=== PATIENT | male | born 1990 | race Caucasian/White ===

== ENCOUNTER 2016-05-12 08:48 | Emergency (ER) | payer BC ==
[2016-05-12 09:01] VITALS: BP 126/68
--- NOTE | 2016-05-12 11:54 | UC ---
Mayelin Melendez Michael, scribed for Snow Daniel DO on 05/12/16 at 0930 . Throat Pain/Nasal Augie HPI - HPI Summary HPI Summary: 26 y/o pain c/o a sore throat that started 3 dayS ago. The pt reports that the pain has worsened since yesterday, and it is painful to swallow. He states when clearing his sinuses there is a "string" of blood in his mucous. Since yesterday , the pt has has dark brown bloody mucous when he clears his sinuses in the morning. The pt also c/o ear "popping" ear pressure without pain, sinus discomfort, and a fever of 100.2. He denies SOB, CP, cough, MENDOZA, and n/v. The FHx is significant for cardiac disease and cancer. - History of Current Complaint Chief Complaint: UCRespiratory Stated Complaint: FEVER EAR PAIN SORE THROAT Time Seen by Provider: 05/12/16 09:03 Hx Obtained From: Patient, Medical Records Onset/Duration: Sudden Onset, Lasting Days, Still Present Severity: Moderate Pain Intensity: 6 Pain Scale Used: 0-10 Numeric Cough: None Associated Signs & Symptoms: Positive: Negative - SOB. CP. n/v. MENDOZA., Dysphagia, Sinus Discomfort, Fever, Other - sore throat. ear pressure.. Negative: Drooling , Wheezing, Hoarseness, Nasal Discharge, Vomiting Related History: Smoking - Allergies/Home Medications Allergies/Adverse Reactions: Allergies Allergy/AdvReac Type Severity Reaction Status Date / Time No Known Allergies Allergy Verified 03/17/15 12:25 PMH/Surg Hx/FS Hx/Imm Hx Previously Healthy: Yes Endocrine History Of: Denies: Diabetes, Thyroid Disease Cardiovascular History Of: Denies: Cardiac Disorders, Hypertension Respiratory History Of: Denies: COPD, Asthma GI/ History Of: Denies: Ulcer - Surgical History Surgical History: Yes Surgery Procedure, Year, and Place: appendectomy - 2000 - Family History Known Family History: Positive: Cardiac Disease, Other - cancer Negative: Hypertension, Blood Disorder - Social History Occupation: Employed Full-time Lives: With Family Alcohol Use: Weekly Substance Use Type: Marijuana Smoking Status (MU): Light Every Day Tobacco Smoker Type: Cigarettes Amount Used/How Often: 1/2 -1PPD Length of Time of Smoking/Using Tobacco: 11 YEARS Have You Smoked in the Last Year: Yes Cessation Counseling: Patient Advised to Stop - Immunization History Most Recent Influenza Vaccination: GOT FLU SHOT 3 WEEKS AGO. Most Recent Tetanus Shot: up to date Review of Systems Constitutional: Fever Skin: Negative Eyes: Negative ENT: Sore Throat, Other - sinus discomfort, ear pressure. Respiratory: Negative Cardiovascular: Negative Gastrointestinal: Negative Genitourinary: Negative Motor: Negative Neurovascular: Negative Musculoskeletal: Negative Neurological: Negative Psychological: Negative All Other Systems Reviewed And Are Negative: Yes Physical Exam Triage Information Reviewed: Yes Appearance: Well-Appearing, No Pain Distress, Well-Nourished Vital Signs: Initial Vital Signs Temp 99.1 F 05/12/16 08:54 Pulse 102 05/12/16 08:54 Resp 16 05/12/16 08:54 BP 126/68 05/12/16 08:54 Pulse Ox 97 05/12/16 08:54 Vital Signs Reviewed: Yes Eyes: Positive: Conjunctiva Clear. Negative: Discharge ENT: Positive: Hearing grossly normal, Pharyngeal erythema, TM bulging, TM red, Tonsillar swelling, Other: - right sinus tenderness over left maxillary sinus. Negative: Nasal drainage, Tonsillar exudate, Trismus, Muffled/hoarse voice Dental Exam: Normal Neck: Positive: Supple, Nontender, No Lymphadenopathy Respiratory: Positive: Lungs clear, Normal breath sounds, No respiratory distress, No accessory muscle use Cardiovascular: Positive: RRR, No Murmur Musculoskeletal Exam: Normal Neurological: Positive: Alert, Muscle Tone Normal Psychological Exam: Normal Psychological: Positive: Age Appropriate Behavior Skin: Positive: Other - warm. dry. nml color. Throat Pain/Nasal Course/Dx - Differential Dx/Diagnosis Differential Diagnosis/HQI/PQRI: Influenza, Otitis Media, Pharyngitis, Sinusitis , Tonsillitis, URI Provider Diagnoses: om, sinusitis Discharge - Discharge Plan Condition: Stable Disposition: HOME Prescriptions: Amoxicillin/Clavulanate TAB* [Augmentin TAB 875*] 875 mg PO BID #20 tab Patient Education Materials: Sinusitis (ED), Otitis Media (ED) Forms: *Work Release Referrals: Rashi Boss MD [Primary Care Provider] - If Needed Additional Instructions: ANTIBIOTICS ARE NOT CURRENTLY INDICATED FOR YOUR CONDITION. HOWEVER IF YOUR SYMPTOMS WORSEN OR PERSIST FOR MORE THAN 2-4 DAYS, YOU CAN START THE FOLLOWING ANTIBIOTI AUGMENTIN: Augmentin is a mixture of amoxicillin and clavulanate. Amoxicillin is a member of the penicillin family. It covers the germs likely to cause ear, bronchial, and urinary infections better than plain penicillin. The addition of clavulanate allows it to cover staph infections of the skin, as well as resistant cases of ear and sinus infections. Your physician has chosen Augmentin for you because of the special nature of your situation. Augmentin is best taken with meals. Nausea after taking the medication is rare, but can occur. Diarrhea can occur, particularly in small children. Vaginal yeast infections, and oral thrush in infants are also common. Contact your physician if these problems occur. Allergy to penicillins is common. If you have had an allergic reaction to any drug of the penicillin family, you should never take any other penicillin. Notify your doctor at once if you develop hives, shortness of breath, swelling, or faintness. ANY TIME YOU TAKE AN ANTIBIOTIC, IT IS IMPORTANT TO REPLENISH THE BODY'S BALANCE OF "GOOD" BACTERIA BY EATING HIGH QUALITY CULTURED FOOD SUCH YOGURT, SAURKRAUT OR JASBIR CHI AND/OR TAKING A PROBIOTIC SUPPLEMENT. TRY USING THE NETTI POT IN THE MORNINGS DISCUSSED. YOU MUST ALWAYS USE CLEAN WATER. REMEMBER, POSTURE IS AN IMPORTANT FACTOR IN SINUS DRAINAGE. MOVE YOUR NECK, BREATHE. The documentation as recorded by the Mayelin padilla Michael accurately reflects the service I personally performed and the decisions made by , Snow Daniel DO.
== END 2016-05-12 09:55 | disposition home or self-care (01) ==
LOC: UCEAST 08:48
DX: H66.90 Otitis media, unspecified, unspecified ear (principal); J01.90 Acute sinusitis, unspecified; B96.89 Other specified bacterial agents as the cause of diseases classified elsewhere
CPT/HCPCS: 87502; 87651; 99212; G0463

== ENCOUNTER 2016-11-07 15:11 | Emergency (ER) | payer BC ==
[2016-11-07 15:26] VITALS: BP 116/71
[2016-11-07] MEDS ORDERED: cefTRIAXone VIAL(*) 250 MG VIAL IM ONE (16:26)
[2016-11-07] MEDS ORDERED: Azithromycin TAB* 250 MG PO ONE (16:27)
[2016-11-07] MEDS ORDERED: Lidocaine 1% MPF* 2 ML VIAL INJ ONE ×2 (16:53→16:54)
--- NOTE | 2016-11-07 18:09 | UC ---
Aileen Melendez Edward, scribed for Mc Atkins MD on 11/07/16 at 1622 . Complaint Male HPI - HPI Summary HPI Summary: 26 y/o male presents to [facility] c/o bumps on his penis and dysuria. The bumps started the day before yesterday - patient squeezed one and c/o of severe pain. Patient also stated that there was clear discharge out of several of the lesions. Denies fevers, chills. Associated sx: chronic ache in testicles, mild abd pain and bilateral flank pain. Pt states loss of appetite recently due to anxiety. SHx appendectomy when he was 9. Patient stated he had intercourse recently with his ex-girlfriend. - History of Current Complaint Chief Complaint: UCGU Stated Complaint: LOWER ABD PAIN,BURING URINATION Time Seen by Provider: 11/07/16 16:03 Hx Obtained From: Patient Onset/Duration: Lasting Days - Bumps on penis appeared the day before yesterday Timing: Constant Severity Initially: Mild Pain Intensity: 3 Pain Scale Used: 0-10 Numeric Location: Penis Associated Signs And Symptoms: Positive: Back Pain, Dysuria, Appetite - Change in appetite due to anxiety. Negative: Fever - Allergies/Home Medications Allergies/Adverse Reactions: Allergies Allergy/AdvReac Type Severity Reaction Status Date / Time No Known Allergies Allergy Verified 11/07/16 15:27 PMH/Surg Hx/FS Hx/Imm Hx Previously Healthy: Yes - Surgical History Surgical History: Yes Surgery Procedure, Year, and Place: appendectomy - 1999 - Family History Known Family History: Positive: Cardiac Disease, Other - cancer Negative: Hypertension, Blood Disorder - Social History Occupation: Employed Full-time Lives: With Family - With mom Alcohol Use: Weekly Substance Use Type: Marijuana Smoking Status (MU): Light Every Day Tobacco Smoker Type: Cigarettes Amount Used/How Often: 1/2 -1PPD Length of Time of Smoking/Using Tobacco: 11 YEARS Have You Smoked in the Last Year: Yes - Immunization History Most Recent Influenza Vaccination: GOT FLU SHOT 3 WEEKS AGO. Most Recent Tetanus Shot: up to date Review of Systems Constitutional: Negative - Negative fever, chills Skin: Other - Bumps on penis - patient squeezed on and it was severely painful. Patient stated there was clear fluid discharged from several of the lesions Eyes: Negative ENT: Negative Respiratory: Negative Cardiovascular: Negative Gastrointestinal: Abdominal Pain - Mild abd pain Genitourinary: Dysuria, Other - Chronic ache in testicles Motor: Negative Neurovascular: Negative Musculoskeletal: Edema - Mild back pain Neurological: Negative Psychological: Anxious - with loss of appetite All Other Systems Reviewed And Are Negative: Yes Physical Exam Triage Information Reviewed: Yes Appearance: Well-Appearing, No Pain Distress Vital Signs: Initial Vital Signs Temp 98.1 F 11/07/16 15:23 Pulse 84 11/07/16 15:23 Resp 18 11/07/16 15:23 BP 116/71 11/07/16 15:23 Pulse Ox 99 11/07/16 15:23 Vital Signs Reviewed: Yes Eye Exam: Normal ENT: Positive: Normal ENT inspection Neck: Positive: Supple, Nontender Respiratory: Positive: Lungs clear, Normal breath sounds Cardiovascular Exam: Normal Abdomen Description: Positive: Nontender, Soft Bowel Sounds: Positive: Present Musculoskeletal: Positive: Strength Intact, ROM Intact Neurological: Positive: Alert Psychological Exam: Normal Skin: Positive: significant lesion(s) - On the suprapubic region and the shaft of the penis there are multiple lesions, ranging from 4-12 mm in diameter, raised, with central dimples. Complaint Male Course/Dx - Course Course Of Treatment: Medications reviewed on patient visit. HSV culture swabs were done. PAtient expressed clear fluid out of several of the lesions at this time. GC/CHLAMYDIA PENDING. WILL TREAT FOR GC/CHLAMYDIA AND HSV. MOLLUSCUM IS ALSO A POSSIBLE DX. - Differential Dx/Diagnosis Provider Diagnoses: GENITAL RASH Discharge - Discharge Plan Condition: Stable Disposition: HOME Prescriptions: ValACYclovir (*) [Valtrex 1 GM(*)] 1 gm PO BID #20 tab Patient Education Materials: Genital Herpes Simplex (ED), Dysuria (ED) Referrals: Rashi Boss MD [Primary Care Provider] - Additional Instructions: FOLLOW UP WITH YOUR DOCTOR FOR YOUR GENITAL RASH. YOU HAVE BEEN TREATED WITH THE ANTIBIOTICS ROCEPHIN AND AZITHROMYCIN FOR POSSIBLE GONORRHEA AND/OR CHLAMYDIA. YOUR URINE TEST RESULTS FOR GONORRHEA AND CHLAMYDIA ARE PENDING. TAKE THE VALTREX DIRECTED. YOUR SWAB CULTURE AND HERPES BLOOD WORK RESULTS ARE PENDING. RETURN TO THE EMERGENCY DEPARTMENT FOR ANY WORSENING OF YOUR CONDITION OR QUESTIONS OR CONCERNS. The documentation as recorded by the Aileen padilla Edward accurately reflects the service I personally performed and the decisions made by me, Mc Atkins MD.
[2016-11-09 23:28] LABS: HS/VZ Source PENIS LESION; Varicella Zoster Result Negative (Negative); Varicella Zoster Source PENIS LESION
--- NOTE | 2016-11-10 07:42 | UC ---
Progress - Progress Note Progress Note: Reviewed chart and labs. Positive for HSV2, is being treated with Valtrex. Please advise of positive result, advise re risk of infecting partner.
== END 2016-11-07 17:55 | disposition home or self-care (01) ==
LOC: UCEAST 15:11
DX: B00.9 Herpesviral infection, unspecified (principal); F12.90 Cannabis use, unspecified, uncomplicated; F17.210 Nicotine dependence, cigarettes, uncomplicated
CPT/HCPCS: 81003; 86694; 86695; 86696; 87491; 87529; 87591; 87798; 96372; 99212; A9270-GY; G0463; J0696

== ENCOUNTER 2017-11-10 13:22 | Emergency (ER) | payer BC ==
[2017-11-10 13:41] VITALS: BP 130/68
--- NOTE | 2017-11-10 14:02 | UC ---
Throat Pain/Nasal Augie HPI - HPI Summary HPI Summary: 27 yo male presents with sinus pain/pressure/congestion and productive cough for the last week. He has not been taking anything OTC. He smokes daily. Denies fever, chills, SOB, chest pain. - History of Current Complaint Chief Complaint: UCRespiratory Stated Complaint: CONGESTED Time Seen by Provider: 11/10/17 14:01 Hx Obtained From: Patient Onset/Duration: Gradual Onset Pain Intensity: 0 Cough: Productive - Allergies/Home Medications Allergies/Adverse Reactions: Allergies Allergy/AdvReac Type Severity Reaction Status Date / Time No Known Allergies Allergy Verified 11/10/17 13:42 PMH/Surg Hx/FS Hx/Imm Hx - Additional Past Medical History Additional PMH: HSV2 Previously Healthy: Yes - Surgical History Surgical History: Yes Surgery Procedure, Year, and Place: appendectomy - 1999 - Family History Known Family History: Positive: Cardiac Disease, Other - cancer Negative: Hypertension, Blood Disorder - Social History Occupation: Employed Full-time Lives: With Family Alcohol Use: None Substance Use Type: Marijuana Smoking Status (MU): Light Every Day Tobacco Smoker Type: Cigarettes Amount Used/How Often: 1/2 -1PPD Length of Time of Smoking/Using Tobacco: 11 YEARS Have You Smoked in the Last Year: Yes - Immunization History Most Recent Influenza Vaccination: GOT FLU SHOT 3 WEEKS AGO. Most Recent Tetanus Shot: up to date Review of Systems Constitutional: Negative Skin: Negative Eyes: Negative ENT: Nasal Discharge, Sinus Congestion, Sinus Pain/Tenderness Respiratory: Cough Cardiovascular: Negative Gastrointestinal: Negative Neurovascular: Negative Neurological: Negative Psychological: Negative All Other Systems Reviewed And Are Negative: Yes Physical Exam - Summary Physical Exam Summary: GENERAL: NAD. WDWN. No pain distress. SKIN: No rashes, sores, lesions, or open wounds. HEENT: Head: AT/NC Eyes: EOM intact. Conjunctiva clear without inflammation or discharge. Ears: Hearing grossly normal. TMs intact, no bulging, erythema, or edema. Nose: Nasal mucosa mildly swollen and erythematous with yellow/ green discharge. TTP maxillary and frontal sinus. Throat: Posterior oropharynx without exudates, erythema, or tonsillar enlargement. Uvula midline. NECK: Supple. Nontender. No lymphadenopathy. CHEST: CTAB. No r/r/w. No accessory muscle use. Breathing comfortably and in no distress. CV: RRR. Without m/r/g. Pulses intact. Brisk cap refill. NEURO: Alert. CN II-XII grossly intact. PSYCH: Age appropriate behavior. Triage Information Reviewed: Yes Vital Signs: Initial Vital Signs Temp 97.8 F 11/10/17 13:39 Pulse 71 11/10/17 13:39 Resp 18 11/10/17 13:39 BP 130/68 11/10/17 13:39 Pulse Ox 99 11/10/17 13:39 Throat Pain/Nasal Course/Dx - Course Course Of Treatment: Sinusitis. Bronchitis - Differential Dx/Diagnosis Provider Diagnoses: Sinusitis. Bronchitis Discharge - Sign-Out/Discharge Documenting (check all that apply): Discharge/Admit/Transfer - Discharge Plan Condition: Stable Disposition: HOME Prescriptions: Azithromycin TAB* [Zithromax TAB (Z-ALVIN) 250 mg #6 tabs] 2 tab PO .TODAY, THEN 1 DAILY #1 alvin ValACYclovir (*) [Valtrex 500 mg (*)] 500 mg PO BID PRN #60 tab PRN Reason: Rash Patient Education Materials: Acute Bronchitis (ED) Forms: *Work Release Referrals: Rashi Boss MD [Primary Care Provider] - Additional Instructions: If you develop a fever, shortness of breath, chest pain, new or worsening symptoms - please call your PCP or go to the ED. - Billing Disposition and Condition Condition: STABLE Disposition: Home
== END 2017-11-10 14:20 | disposition home or self-care (01) ==
LOC: UCEAST 13:22
DX: J40 Bronchitis, not specified as acute or chronic (principal); J32.9 Chronic sinusitis, unspecified; F17.210 Nicotine dependence, cigarettes, uncomplicated
CPT/HCPCS: 99212; G0463

== ENCOUNTER 2018-10-17 08:37 | Emergency (ER) | payer SELFPAY ==
[2018-10-17 08:51] VITALS: BP 130/77
--- NOTE | 2018-10-17 08:52 | UC ---
Laceration HPI - HPI Summary HPI Summary: 28 yo male presents with laceration to left hand. He tells me that this morning at work he was cutting vegetables and the knife slipped and he sustained a laceration to his left thenar region. He bandaged the area and came to . States his last tetanus was within the last 5 years - History Of Current Complaint Chief Complaint: UCLaceration Stated Complaint: HAND LACERATION Hx Obtained From: Patient Laceration Location: Hand Mechanism Of Injury: Sharp Trauma Onset/Duration: Sudden Onset Severity: Mild Pain Intensity: 2 Pain Scale Used: 0-10 Numeric - Allergies/Home Medications Allergies/Adverse Reactions: Allergies Allergy/AdvReac Type Severity Reaction Status Date / Time No Known Allergies Allergy Verified 10/17/18 08:51 PMH/Surg Hx/FS Hx/Imm Hx - Additional Past Medical History Additional PMH: Herpes - Surgical History Surgical History: Yes Surgery Procedure, Year, and Place: appendectomy - 1999 - Family History Known Family History: Positive: Cardiac Disease, Other - cancer Negative: Hypertension, Blood Disorder - Social History Lives: With Family Alcohol Use: Rare Alcohol Amount: recovering alcoholic Substance Use Type: Marijuana Substance Use Comment - Amount & Last Used: daily Smoking Status (MU): Heavy Every Day Tobacco Smoker Type: Cigarettes Amount Used/How Often: 1/2 -1PPD Length of Time of Smoking/Using Tobacco: 11 YEARS Have You Smoked in the Last Year: Yes - Immunization History Most Recent Influenza Vaccination: GOT FLU SHOT 3 WEEKS AGO. Most Recent Tetanus Shot: up to date Review of Systems All Other Systems Reviewed And Are Negative: Yes Constitutional: Positive: Negative Skin: Positive: Other - Left hand laceration Respiratory: Positive: Negative Cardiovascular: Positive: Negative Neurovascular: Positive: Negative Musculoskeletal: Positive: Negative Neurological: Positive: Negative Psychological: Positive: Negative Physical Exam - Summary Physical Exam Summary: GENERAL: NAD. WDWN. No pain distress. SKIN: LEFT THENAR emminence with 2.5cm linear laceration just through the epidermis with 5mm through the dermis. Scant active bleeding. Clean wound without FB. Slight gap with movement of left thumb. No tendon involvement. CHEST: No accessory muscle use. Breathing comfortably and in no distress. CV: Pulses intact. Cap refill <2seconds MSK: FROM left thumb NEURO: Alert. PSYCH: Age appropriate behavior. Triage Information Reviewed: Yes Vital Signs: Initial Vital Signs Temp 98.3 F 10/17/18 08:47 Pulse 70 10/17/18 08:47 Resp 18 10/17/18 08:47 BP 130/77 10/17/18 08:47 Pulse Ox 99 10/17/18 08:47 Vital Signs Reviewed: Yes Laceration Repair - Laceration Repair 1 Description: Linear Laceration Size After Repair: Length (cm) - 2.5 Modified For Repair: No Irrigation With Pressure Irrigation Device: Yes Closure Material: Skin Adhesive, SteriStrips Closure Method: Single Layer Suture Of: Skin Laceration Course/Dx - Course/Dx Course Of Treatment: I discussed with pt sutures vs dermabond. I recommended sutures given that he works with his hands and, with dermabond, this has a higher risk of opening back up. Pt states that he has an intense fear of needles and would prefer glue. I discussed that with dermabond the wound could open back up and will likely increase scar formation/noticeability. He continued to defer sutures. Wound was irrigated with 200mL NS. Wound was brought into good approximation and dermabond applied. Steri strips applied. - Diagnosis Provider Diagnosis: Laceration of left hand Discharge - Sign-Out/Discharge Documenting (check all that apply): Patient Departure All imaging exams completed and their final reports reviewed: No Studies - Discharge Plan Condition: Stable Disposition: HOME Patient Education Materials: Laceration (ED), Skin Adhesive Care (ED) Forms: *Work Release Referrals: Rashi Boss MD [Primary Care Provider] - Additional Instructions: If you develop a fever, shortness of breath, chest pain, new or worsening symptoms - please call your PCP or go to the ED immediately. Change the band-aid daily until well healed (likely 5-7 days). - Billing Disposition and Condition Condition: STABLE Disposition: Home
== END 2018-10-17 09:47 | disposition home or self-care (01) ==
LOC: UCEAST 08:37
DX: S61.412A Laceration without foreign body of left hand, initial encounter (principal); W26.0XXA Contact with knife, initial encounter; Y93.G1 Activity, food preparation and clean up; Y92.9 Unspecified place or not applicable; F17.210 Nicotine dependence, cigarettes, uncomplicated
CPT/HCPCS: 12002; 99211; G0463

== ENCOUNTER 2019-02-01 11:09 | Emergency (ER) | payer SELFPAY ==
[2019-02-01 11:25] VITALS: BP 121/74
--- NOTE | 2019-02-01 11:41 | UC ---
Respiratory Complaint HPI - HPI Summary HPI Summary: Mr. Jama has had cough and congestion for over 2 weeks. The last few days he began to get a severe headache in his bilateral frontal area with a feeling of fullness. He denies any fever or chills or neck stiffness. - History of Current Complaint Chief Complaint: UCRespiratory Stated Complaint: SORE THROAT Time Seen by Provider: 02/01/19 11:28 Hx Obtained From: Patient Onset/Duration: Gradual Onset Timing: Constant Severity Initially: Mild Severity Currently: Moderate Pain Intensity: 4 Character: Cough: Productive Associated Signs And Symptoms: Positive: URI, Nasal Congestion, Sinus Discomfort - Allergies/Home Medications Allergies/Adverse Reactions: Allergies Allergy/AdvReac Type Severity Reaction Status Date / Time No Known Allergies Allergy Verified 02/01/19 11:25 Home Medications: Home Medications D-Methorphan/PE/Acetaminophen [Vicks Dayquil Cold & Flu] 2 cap PO 02/01/19 [ History] PMH/Surg Hx/FS Hx/Imm Hx Previously Healthy: Yes - Surgical History Surgical History: Yes Surgery Procedure, Year, and Place: appendectomy - 1999 - Family History Known Family History: Positive: Cardiac Disease, Other - cancer Negative: Hypertension, Blood Disorder - Social History Alcohol Use: Rare Alcohol Amount: recovering alcoholic Substance Use Type: Marijuana Substance Use Comment - Amount & Last Used: daily Smoking Status (MU): Heavy Every Day Tobacco Smoker Type: Cigarettes Amount Used/How Often: 1/2 -1PPD Length of Time of Smoking/Using Tobacco: 11 YEARS Have You Smoked in the Last Year: Yes - Immunization History Most Recent Influenza Vaccination: GOT FLU SHOT 3 WEEKS AGO. Most Recent Tetanus Shot: up to date Review of Systems All Other Systems Reviewed And Are Negative: Yes Constitutional: Negative: Fever, Chills - Although still here ENT: Positive: Nasal Discharge, Sinus Congestion, Sinus Pain/Tenderness Respiratory: Positive: Cough Physical Exam - Summary Physical Exam Summary: He is nontoxic in appearance with stable vital signs. Triage Information Reviewed: Yes Appearance: Well-Appearing Vital Signs: Initial Vital Signs Temp 99.1 F 02/01/19 11:22 Pulse 74 02/01/19 11:22 Resp 18 02/01/19 11:22 BP 121/74 02/01/19 11:22 Pulse Ox 100 02/01/19 11:22 Vital Signs Reviewed: Yes ENT: Positive: Pharyngeal erythema, Nasal congestion, Nasal drainage, TM bulging - Left, Sinus tenderness - Is frontal sinuses do not transilluminate Neck: Positive: Supple, Nontender, Enlarged Nodes @ - Anterior cervical Respiratory: Positive: Chest non-tender, Lungs clear, Normal breath sounds, No respiratory distress, No accessory muscle use Respiratory Course/Dx - Course Course Of Treatment: Is obviously very congested and needs to be a decongestant. Given the length of time in this smoking status I'm going to also give him Augmentin. - Differential Dx/Diagnosis Provider Diagnosis: Acute sinusitis Discharge ED - Sign-Out/Discharge Documenting (check all that apply): Patient Departure All imaging exams completed and their final reports reviewed: No Studies - Discharge Plan Condition: Stable Disposition: HOME Patient Education Materials: Sinusitis (ED) Referrals: Rashi Boss MD [Primary Care Provider] - - Billing Disposition and Condition Condition: STABLE Disposition: Home
== END 2019-02-01 11:53 | disposition home or self-care (01) ==
LOC: UCEAST 11:09
DX: J01.90 Acute sinusitis, unspecified (principal); F17.210 Nicotine dependence, cigarettes, uncomplicated
CPT/HCPCS: 99212; G0463